=== PATIENT | male | born 1960 | race Caucasian/White ===

== ENCOUNTER 2023-03-01 19:31 | Observation (INO) | payer BC ==
[~2023-03-01] VITALS: Ht 182.9 cm; Wt 115.0 kg
[2023-03-01] MEDS ORDERED: MOBIC15 MG PO (20:43)
[2023-03-01] MEDS ORDERED: COZAAR100 MG PO (20:44)
--- NOTE | 2023-03-01 22:32 | NUR ---
Called Dr. Wells and received an order for general diet.
[2023-03-01 22:45] VITALS: BP 113/70; PULSE 94
[2023-03-01 23:00] VITALS: BP 114/64; PULSE 91
[2023-03-01 23:15] VITALS: BP 120/57; PULSE 91
[2023-03-01 23:30] VITALS: BP 139/92; PULSE 90
[2023-03-02] VITALS (11 sets, daily range): BP systolic 101–134; BP diastolic 51–81; PULSE 74–88; TEMP 97.7–98.6
--- NOTE | 2023-03-02 00:40 | NUR ---
Patient is admitted for kidney stone and is here for left cystoscopy with stent placement, from [facility] brought by the EMS and arrived to the floor at 1911. Dr. Wells came in to see the patient and explained the planned procedure, consent signed by the patient, NPO maintained, still with IV infusing well on left AC. Patient taken to OR by Nurse Ayala at 2043 and patient arrived back to the floor at 2234 with PACU Nurse BOZENA Costa via gravity, with 500 credit, VSS, on room air, reports pain at 2-3/10, admission assessment and intake done, med rec done, voided the urinal with light red urine, denies further needs, call light and personal items within reach, will continue to monitor.
--- NOTE | 2023-03-02 06:29 | NUR ---
Patient resting in bed, voided fine, denies further needs at this time.
[2023-03-02] MEDS ORDERED: AMOXICILLIN 8751 TAB PO (17:44)
--- NOTE | 2023-03-02 18:48 | NUR ---
Reviewed discharge instructions with pt to include prescription and follow up appointment. Informed him to notify nursing when his ride is here
--- NOTE | 2023-03-02 19:11 | NUR ---
PT DISCHARGED WITH TO HOME VIA WHEELCHAIR BY STAFF. IV D/C BY THIS RN. ALL QUESTIONS ANSWERED.
--- NOTE | 2023-03-03 08:15 | NUR ---
[employer] met with Patient at bedside on 03-02-23 to conduct Car eManagment assessment and discuss discharge planning. Patient lives in [place], [place] with his and is established with PCP Dr. Nieto. Patient is covered by [facility] for insruance and requests discharge medications be sent to [facility]. Patient denies the use of DME and endorses independency with ADL/IADLs prior to admission. Patient states that is DPOAHC is his daughter Taylor. Candien expects to discharge home when medically ready. Discharge Plan: Home
== END 2023-03-02 19:14 | disposition home or self-care (01) ==
LOC: SURG 19:31
PROVIDERS: ADMIT Urology
DX: N20.1 Calculus of ureter (principal)
CPT/HCPCS: OP; C1769; C2617; G0378; G0379; J0690; J1100; J2405; J2704; J2765; J3010; J7030; Q9967